=== PATIENT | female | born 1990 | race Caucasian/White ===

== ENCOUNTER 2018-06-02 18:01 | Emergency (ER) | payer SELFPAY ==
[2018-06-02 18:50] VITALS: O2SAT 100
--- NOTE | 2018-06-02 20:00 | ED.PDOC ---
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 She does not have any abdominal pain. No other complaints. Her previous deliveries were all C-sections with no other complications. Timing/Duration: momentarily Severity: mild Improving Factors: nothing Worsening Factors: nothing Associated Symptoms: denies symptoms Allergies/Adverse Reactions: Allergies NO KNOWN ALLERGY Allergy (Verified 06/02/18 18:50) Home Medications: Ambulatory Orders NK 06/02/18 Review of Systems - Review of Systems Constitutional: States: no symptoms reported Respiratory: States: no symptoms reported Cardiology: States: no symptoms reported Gastrointestinal/Abdominal: States: no symptoms reported Genitourinary: States: see HPI Musculoskeletal: States: no symptoms reported Skin: States: no symptoms reported Neurological: States: no symptoms reported Endocrine: States: no symptoms reported Hematologic/Lymphatic: States: no symptoms reported Past Medical History (General) - Patient Medical History Hx Stroke: No Hx Congestive Heart Failure: No Hx Diabetes: No - Vaccination History Hx Influenza Vaccination: No Hx Pneumococcal Vaccination: No - Social History Hx Tobacco Use: No Hx Alcohol Use: Yes - Rare - Female History Patient is a Female of Child Bearing Age (10 -59 yrs old): Yes Patient : Yes - 5 weeks Family Medical History - Family History Mother Family History: No Known Living Status: Still Living Physical Exam - Physical Exam General Appearance: Alert Eye Exam: bilateral normal Ears, Nose, Throat: normal ENT inspection Neck: non-tender, full range of motion, supple Respiratory: lungs clear, normal breath sounds Cardiovascular/Chest: normal peripheral pulses, regular rate, rhythm, no edema Gastrointestinal/Abdominal: normal bowel sounds, non tender, soft Back Exam: normal inspection, no CVA tenderness Extremity: normal range of motion, non-tender, normal inspection Skin Exam: normal color Lymphatic: no adenopathy Progress - Progress Progress: 06/02/18 20:22 Patient did not have any abdominal pain or discomfort. No concern for ectopic at this time. 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 E.R. warnings given. Care instructions given. Questions were elicited and answered. The patient voiced understanding and agreement with the plan. Departure - Departure Clinical Impression: Threatened in first trimester Disposition: Discharge to Home or Self Care Condition: Good Departure Forms: ED Discharge - Pt. 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 Return to the E.R. for abdominal pain or increased bleeding.
[2018-06-02] MEDS ORDERED: ACETAMINOPHEN 325 MG TAB PO ONE (20:21)
[2018-06-02 20:42] VITALS: BP 140/86; TEMP 98.7
== END 2018-06-02 20:40 | disposition home or self-care (01) ==
LOC: ER 18:01
DX: O20.0 Threatened abortion (principal); Z3A.01 Less than 8 weeks gestation of pregnancy

== ENCOUNTER 2018-08-21 12:51 | Emergency (ER) | payer MEDICAID ==
[2018-08-21 13:28] VITALS: TEMP 97.8; O2SAT 100
--- NOTE | 2018-08-21 13:53 | ED.PDOC ---
History of Present Illness - General Chief Complaint: Abdominal Pain Stated Complaint: low back pain/abdominal pain Time Seen by Provider: 08/21/18 13:31 Information Source: patient Exam Limitations: no limitations - History of Present Illness Initial Comments: Maegan Chiang 27 y/o female came to ER with on and off sharp mid abdominal pain the last 3 days non radiating ;feels nauseated,no vomiting,no vahinal discharge or bleeding,no dysuria.Stated has chonic back pains.Able to eat meals daily.Patient LMP-04/21/2018;Ab0 EDC-01/30/19 Abdominal Pain Onset Location: other - mid abdomen Pain Radiation: no radiation Quality: moderate, intermittent, sharpness Improving Factors: nothing Worsening Factors: nothing Associated Symptoms: other - see hpi Review of Systems - Review of Systems Constitutional: States: no symptoms reported EENTM: States: no symptoms reported Respiratory: States: no symptoms reported Cardiology: States: no symptoms reported Gastrointestinal/Abdominal: States: see HPI Musculoskeletal: States: no symptoms reported All other Systems: Reviewed and Negative, No Change from Baseline Past Medical History (General) - Patient Medical History Hx Stroke: No Hx Congestive Heart Failure: No Hx Diabetes: No Surgical History: other - c- sections - Vaccination History Hx Influenza Vaccination: No Hx Pneumococcal Vaccination: No - Social History Hx Tobacco Use: No Hx Alcohol Use: Yes - Rare Hx Physical Abuse: No Hx Emotional Abuse: No - Female History Patient is a Female of Child Bearing Age (10 -59 yrs old): Yes Hx Last Menstrual Period: 04/21/19 Patient : Yes Expected Date of Delivery:: 01/31/19 - Triage Comment ED Triage Comment: Dr. Urrutia/OB Family Medical History - Family History Mother Family History: No Known Living Status: Still Living Physical Exam - Physical Exam General Appearance: Alert, Comfortable, No apparent distress Eyes, Ears, Nose, Throat Exam: normal ENT inspection Neck: full range of motion, supple, normal inspection Respiratory: chest non-tender, lungs clear, normal breath sounds Cardiovascular/Chest: normal peripheral pulses, regular rate, rhythm, no murmur Peripheral Pulses: No deficit Gastrointestinal/Abdominal: non tender, soft, no organomegaly, other - [id number] Pelvic Exam: normal external exam, no cerv. motion tender, other - pelvis closed no blood cervical os Progress - Progress Progress: 08/21/18 14:03 Vital Signs - 8 hr 08/21/18 13:05 Temperature 97.8 F Pulse Rate [ 67 left brachial] Respiratory 20 Rate Blood Pressure 129/93 [left brachial] O2 Sat by Pulse 100 Oximetry - Results/Orders Results/Orders: Laboratory Results - last 24 hr 08/21/18 13:40 Urine Color Yellow Urine Appearance Clear Urine pH 8.0 H Ur Specific [place] 1.015 Urine Protein Negative Urine Glucose (UA) Negative Urine Ketones Negative Urine Blood Negative Urine Nitrite Negative Urine Bilirubin Negative Urine Urobilinogen 0.2 Ur Leukocyte Esterase Negative Urine RBC 0 Urine WBC 0 Ur Epithelial Cells 3-5 Urine Bacteria 0 Discuss test result with patient-urine Departure - Departure Clinical Impression: Abdominal pain Qualifiers: Abdominal location: unspecified location Qualified Code(s): R10.9 - Unspecified abdominal pain Qualifiers: Weeks of gestation: 16 weeks Qualified Code(s): Z3A.16 - 16 weeks gestation of Time of Disposition: 14:06 Disposition: Discharge to Home or Self Care Condition: Fair Departure Forms: ED Discharge - Pt. Copy, Patient Portal Self Enrollment Instructions: DI for Abdominal Pain-Adult, DI for Abdominal Pain -- Early Referrals: Ronni Urrutia MD [Primary Care Provider] - 1-2 Weeks Home Medications: Ambulatory Orders Vit W/ Ferrous Fumara [] 1 tab PO DAILY 08/21/18 Additional Instructions: Call up you [employer] Tech in AM for recheck as needed;Keep appointment with your primary OB ;Return to ER as needed;May take Tylenol 500 mg every 6 hours as needed for pain
[2018-08-21 14:52] VITALS: BP 128/88
== END 2018-08-21 14:30 | disposition home or self-care (01) ==
LOC: ER 12:51
DX: O99.89 Other specified diseases and conditions complicating pregnancy, childbirth and the puerperium (principal); R10.9 Unspecified abdominal pain; R11.0 Nausea; Z3A.16 16 weeks gestation of pregnancy